=== PATIENT | female | born 1955 | race Caucasian/White ===

== ENCOUNTER 2017-09-11 12:07 | Inpatient (IN) | payer MEDICAID, OTHER ==
[~2017-09-11] VITALS: Ht 162.6 cm; Wt 86.2 kg
[2017-09-11] MEDS ORDERED: METF500T4 PO (12:13)
[2017-09-11] MEDS ORDERED: MORPHINE SULFATE 4 MG/ML CPJ (NOT FOR IM USE) IV STA (12:51)
[2017-09-11] MEDS ORDERED: ONDANSETRON HCL 4MG/2ML VIAL IV STA (12:51)
[2017-09-11] MEDS ORDERED: NITROGLYCERIN 0.4MG TABLET SL SL PRN (13:00)
[2017-09-11] MEDS ORDERED: ASPIRIN 81MG TABLET PO ONE (13:00)
[2017-09-11 13:14] LABS: INR 1.1; PROTHROMBIN TIME 11.3 sec (9.4-11.6)
[2017-09-11 13:17] LABS: BASOPHILS % 0.5 % (0.0-2.0); EOSINOPHILS % 2.3 % (0.0-5.0); HEMATOCRIT. 44.4 % (36.0-48.0); HEMOGLOBIN. 15.5 g/dL (12.0-16.0); LYMPHOCYTES % 28.4 % (20.0-50.0); MEAN CORPUSCULAR HEMOGLOBIN 30.9 pg (28.0-32.0); MEAN CORPUSCULAR VOLUME 88.5 fL (81.0-99.0); MONOCYTES % 9.6 % (2.0-8.0); NEUTROPHILS % 59.2 % (40.0-76.0); RED BLOOD CELL COUNT 5.02 mill/uL (4.2-5.4); RED CELL DISTRIBUTION WIDTH 13.9 % (11.6-14.6)
[2017-09-11 13:25] LABS: CARBON DIOXIDE 26 mEq/L (21-32); CHLORIDE 107 mEq/L (98-107); TROPONIN I < 0.02 ng/mL (0.00-0.04)
[2017-09-11 15:13] LABS: PLATELET 149 x1000/uL (130-400)
[2017-09-11] MEDS ORDERED: ONDANSETRON HCL 4MG/2ML VIAL IV PRN (16:45)
[2017-09-11] MEDS ORDERED: HYDROCODONE/ACETAMINOPHEN 5/325MG TABLET PO PRN (16:45)
[2017-09-11] MEDS ORDERED: DIPHENHYDRAMINE 50MG/ML VIAL IV PRN (16:45)
[2017-09-11] MEDS ORDERED: CLONIDINE 0.1MG TABLET PO PRN (16:45)
[2017-09-11] MEDS ORDERED: IPRATROPIUM/ALBUTEROL 0.5-3(2.5)MG/3ML NEB INH PRN (16:45)
[2017-09-11] MEDS ORDERED: MORPHINE SULFATE 1MG/ML 1ML INJ SYR(NEO) IV ONE (19:00)
[2017-09-11] MEDS: MORPHINE SULFATE 2 MG/ML CPJ (NOT FOR IM USE) IV PRN (19:12)
[2017-09-11] MEDS ORDERED: MORPHINE SULFATE 2 MG/ML CPJ (NOT FOR IM USE) IV NR (19:15)
[2017-09-11 20:00] VITALS: BP 126/61
[2017-09-11] MEDS ORDERED: SYN150 PO (20:24)
[2017-09-11 23:10] VITALS: BP 126/61
[2017-09-12 00:04] VITALS: BP 114/66
[2017-09-12] MEDS: MORPHINE SULFATE 2 MG/ML CPJ (NOT FOR IM USE) IV PRN (00:05)
[2017-09-12 04:00] VITALS: BP 113/62
[2017-09-12] MEDS: ACETAMINOPHEN 325MG TABLET PO PRN ×2 (05:37→10:40)
[2017-09-12 06:59] LABS: BASOPHILS % 0.6 % (0.0-2.0); EOSINOPHILS % 2.7 % (0.0-5.0); HEMATOCRIT. 45.4 % (36.0-48.0); HEMOGLOBIN. 15.7 g/dL (12.0-16.0); LYMPHOCYTES % 37.3 % (20.0-50.0); MEAN CORPUSCULAR VOLUME 89.7 fL (81.0-99.0); MEAN PLATELET VOLUME 9.6 fl (7.4-10.4); MONOCYTES % 7.9 % (2.0-8.0); NEUTROPHILS % 51.5 % (40.0-76.0); PLATELET 169 x1000/uL (130-400); RED BLOOD CELL COUNT 5.06 mill/uL (4.2-5.4); RED CELL DISTRIBUTION WIDTH 13.9 % (11.6-14.6)
[2017-09-12 07:41] LABS: CHLORIDE 102 mEq/L (98-107)
[2017-09-12 08:01] VITALS: BP 100/47
[2017-09-12 08:26] LABS: CARBON DIOXIDE 27 mEq/L (21-32); HDL CHOLESTEROL 78 mg/dL (40-59); LDL CHOLESTEROL 132 mg/dL (5-100); TROPONIN I < 0.02 ng/mL (0.00-0.04)
[2017-09-12] MEDS ORDERED: LEVOTHYROXINE SODIUM 150MCG TABLET PO SCH (10:00)
[2017-09-12] MEDS ORDERED: METFORMIN HCL 500MG TABLET PO SCH (12:15)
[2017-09-12 12:30] VITALS: BP 114/47
[2017-09-12] MEDS ORDERED: HYDR-4001 PO (13:57)
[2017-09-12 15:15] VITALS: BP 114/50
[2017-09-12] MEDS ORDERED: ATORVASTATIN CALCIUM 40MG TABLET PO SCH (21:00)
== END 2017-09-12 16:12 | disposition home or self-care (01) | DRG 203 ==
LOC: ER 12:23 → 5WST 16:17 → EDBEDREQ 16:22 → ENRESERV 17:02
PROVIDERS: ADMIT Internal Medicine; ATTEND Internal Medicine
DX: M94.0 Chondrocostal junction syndrome [Tietze] (principal); E03.9 Hypothyroidism, unspecified; E11.9 Type 2 diabetes mellitus without complications; E66.9 Obesity, unspecified; E78.5 Hyperlipidemia, unspecified; M54.10 Radiculopathy, site unspecified; Z87.891 Personal history of nicotine dependence; Z68.32 Body mass index [BMI] 32.0-32.9, adult
CPT/HCPCS: 36415; 71010; 80053; 80061; 82962; 83880; 84484; 85025; 85610; 87040; 87086; 93005; 93306; 96374; 96375; 99285; J1200; J2270; J2405